=== PATIENT | male | born 1960 | race Caucasian/White ===

== ENCOUNTER 2020-09-23 16:52 | Emergency (ER) | payer OTHER ==
[~2020-09-23] VITALS: Ht 170.2 cm; Wt 83.0 kg
[2020-09-23 17:47] LABS: BASOPHILS % (AUTO) 1 % (0-1); EOSINOPHILS % (AUTO) 0 % (1-7); LYMPHOCYTES % (AUTO) 46 % (22-44); MEAN CORPUSCULAR HEMOGLOBIN 31.9 pg (27.5-34.5); MEAN CORPUSCULAR HGB CONC 33.8 g/dL (33.2-36.2); MONOCYTES % (AUTO) 9 % (2-9); NEUTROPHILS % (AUTO) 44 % (42-75); PLATELET COUNT 174 x10^3/uL (130-400); RED BLOOD COUNT 4.63 x10^6/uL (4.38-5.82); RED CELL DISTRIBUTION WIDTH 12.8 % (9.4-14.8)
[2020-09-23 17:54] LABS: ALBUMIN 3.8 g/dL (3.4-5.0); ANION GAP 4 mmol/L (5-15); CALCIUM 8.3 mg/dL (8.5-10.1); CHLORIDE 107 mmol/L (98-107); CREATININE 1.01 mg/dL (0.7-1.3)
[2020-09-23 18:12] LABS: MD SCAN
[2020-09-23] MEDS ORDERED: ACETAMINOPHEN 325 MG TABLET PO ONE (20:00)
[2020-09-23] MEDS ORDERED: DEXAMETHASONE 1 MG TABLET PO ONE (20:00)
[2020-09-23] MEDS ORDERED: ACETAMINOPHEN 500 MG TABLET ONE (20:03)
[2020-09-23] MEDS ORDERED: DEXAMETHASONE 4 MG TABLET ONE (20:03)
--- NOTE | 2020-09-23 20:17 | NUR ---
PT AMBULATORY TO ROOM AT APPROX 1949.
--- NOTE | 2020-09-23 20:19 | NUR ---
throughput rn: contacted [facility]. 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
[2020-09-23] MEDS ORDERED: AZITHROMYCIN 500 MG TABLET PO/NG ONE (20:30)
[2020-09-23] MEDS ORDERED: CEFDINIR 300 MG CAPSULE PO/NG ONE (20:30)
--- NOTE | 2020-09-23 20:52 | NUR ---
migel from a [facility] called back. per migel 250 for 4 o2 tanks, a regulator, a concentrator, and stand to be delivered to the er. per migel is to meet tech out front to exchange o2. shawna caraballo and pt made aware. at this time pt agrees to service.
[2020-09-23] MEDS ORDERED: CEFDINIR 300 MG CAPSULE ONE (21:00)
[2020-09-23] MEDS ORDERED: AZITHROMYCIN 250 MG TABLET ONE (21:00)
[2020-09-23 21:04] VITALS: BP 107/68
--- NOTE | 2020-09-23 21:12 | NUR ---
LATE ENTRY SUMMARY NOTE: INITIAL CONTACT WITH PT. PT SITTING UP IN BED, NADN. 2L NC O2 BEING ADMINISTERED. MD ANDINO AT BEDSIDE FOR ASSESSMENT. PT CONVERSING APPROPRIATELY. PT STATES RELIEF WITH O2. PT RA SAT 88%. PT HAS REMAINED IN THE GURNEY WITH PHONE AND CALL LIGHT IN REACH, ALL NEEDS MET.
--- NOTE | 2020-09-26 15:18 | NUR ---
FINAL COVID RESULTED, POSITIVE. PT REACHED VIA PHONE AND NOTIFIED. PT COUNSELED REGARDING ISOLATION PRECAUTIONS AND RETURN CRITERIA.
== END 2020-09-23 21:56 | disposition home or self-care (01) ==
LOC: ED 20:13
DX: U07.1 COVID-19 (principal); J18.9 Pneumonia, unspecified organism; R09.02 Hypoxemia; R07.9 Chest pain, unspecified; M79.10 Myalgia, unspecified site
CPT/HCPCS: 71045; 80048; 82040; 85025; 87635; 99284